=== PATIENT | male | born 1950 | race African-American/Black ===

== ENCOUNTER 2021-05-12 10:02 | Emergency (ER) | payer OTHER ==
[2021-05-12 10:09] VITALS: BP 147/91; PULSE 72; TEMP 98.2; BMI 26.2
== END 2021-05-12 10:54 | disposition home or self-care (01) ==
LOC: FER 10:02
DX: S60.459A Superficial foreign body of unspecified finger, initial encounter (principal); W45.8XXA Other foreign body or object entering through skin, initial encounter; Y93.E5 Activity, floor mopping and cleaning; Y92.219 Unspecified school as the place of occurrence of the external cause
CPT/HCPCS: 99281-25

== ENCOUNTER 2022-03-04 03:33 | Inpatient (IN) | payer MEDICARE ==
[2022-03-04] MEDS ORDERED: SODIUM CHLORIDE 0.9% 500 ML INFUS.BAG IV ONE (04:19)
[2022-03-04 04:51] LABS: BASO % 0.4 % (0-2.0); EOS % 0.2 % (0-4.5); HEMATOCRIT 39.4 % (35.4-49); HEMOGLOBIN 13.4 GM/dL (11.7-16.9); LYMPH % 6.7 % (8-40); MCH 27.5 pg (25.7-33.7); MCHC 34.1 g/dl (32.0-35.9); MEAN CELL VOLUME 80.8 fl (80-96); MEAN PLT VOLUME 8.1 fl (7.5-11.1); MONO % 14.9 % (3.8-10.2); NEUT % 77.8 % (42.8-82.8); PLATELET COUNT 216 10^3/uL (134-434); RBC 4.88 M/mm3 (4.00-5.60); RDW 15.7 % (11.9-15.9); WHITE BLOOD COUNT 7.3 K/mm3 (4.0-10.0)
[2022-03-04 04:56] LABS: INR 1.23 (0.83-1.09); PROTHROMBIN TIME (PATIENT) 14.2 SEC (9.7-13.0)
[2022-03-04 04:59] LABS: ACTIVATED PTT 37.9 SECONDS (25.2-36.5)
[2022-03-04 05:36] LABS: CHLORIDE 90 mmol/L (98-107); SODIUM 128 mmol/L (136-145)
[2022-03-04 05:38] LABS: ANION GAP 9 MMOL/L (8-16); BLOOD UREA NITROGEN 17.1 mg/dL (7-18); CALCIUM 8.6 mg/dL (8.5-10.1); CO2 29 mmol/L (21-32); GLUCOSE,RANDOM 118 mg/dL (74-106)
[2022-03-04 05:39] LABS: ALBUMIN 2.4 g/dl (3.4-5.0)
[2022-03-04 05:41] LABS: SGPT/ALT 116 U/L (13-61)
[2022-03-04 05:42] LABS: CREATININE 1.4 mg/dL (0.55-1.3); SGOT/AST 268 U/L (15-37)
[2022-03-04 05:43] LABS: BILIRUBIN,TOTAL 0.8 mg/dL (0.2-1); TOT PROT 6.5 g/dl (6.4-8.2)
[2022-03-04 05:44] LABS: ALK PHOS 72 U/L (45-117)
[2022-03-04] MEDS ORDERED: CEFTRIAXONE 1 GM in DEXTROSE 5%-WATER - 100 ML IVPB ONE (05:52)
[2022-03-04] MEDS ORDERED: AZITHROMYCIN IVPB 500 MG in DEXTROSE 5%-WATER - 250 ML IVPB ONE (05:52)
[2022-03-04] MEDS ORDERED: ASPIRIN 81 MG CHEWABLE TABLETS PO ONE (06:08)
[2022-03-04] MEDS ORDERED: ASPIRIN 81 MG CHEWABLE TABLETS ONE (06:49)
[2022-03-04] MEDS ORDERED: AZITHROMYCIN IVPB 500 MG/250 ML BAG IVPB ONE (06:50)
[2022-03-04] MEDS ORDERED: CEFTRIAXONE 1 GM/50 ML BAG ONE (06:50)
[2022-03-04] MEDS ORDERED: ACETAMINOPHEN 1000 MG/100 ML BAG IVPB ONE (07:00)
[2022-03-04 07:45] LABS: EPI CELLS 14 /uL (0-25.1); HYALINE CASTS 1 /uL (0-3.1); URINE APPEARANCE CLEAR; URINE BACTERIA 3 /uL (0-1359); URINE BILIRUBIN NEGATIVE (NEGATIVE); URINE COLOR YELLOW; URINE GLUCOSE (UA) NEGATIVE (NEGATIVE); URINE KETONE NEGATIVE (NEGATIVE); URINE LEUK ESTERASE NEGATIVE (NEGATIVE); URINE NITRITE NEGATIVE (NEGATIVE); URINE PROTEIN 2+ (NEGATIVE); URINE WBC 52 /uL (0-25.8)
[2022-03-04] MEDS ORDERED: ACETAMINOPHEN INJECTION 100 ML IVPB ONE (08:11)
[2022-03-04 09:21] LABS: CALCIUM 8.3 mg/dL (8.5-10.1)
[2022-03-04 09:22] LABS: BLOOD UREA NITROGEN 17.7 mg/dL (7-18)
[2022-03-04 09:25] LABS: CREATININE 1.3 mg/dL (0.55-1.3)
[2022-03-04] MEDS ORDERED: ACETAMINOPHEN 325 MG TABLET (FP) PO PRN (09:29)
[2022-03-04 10:07] LABS: URINE RBC 24 /uL (0-23.9)
[2022-03-04] MEDS ORDERED: amLODIPine BESYLATE 10 MG TABLET (FP) ONE (10:45)
[2022-03-04] MEDS: DEXTROSE 5%-0.45% SALINE 1,000 ML IV SCH (10:58)
[2022-03-04] MEDS: HEPARIN NA (PORCINE) 5,000 UNITS/ML 1ML VIAL SQ SCH ×2 (10:59→23:14)
[2022-03-04] MEDS: amLODIPine BESYLATE 10 MG TABLET (FP) PO SCH (10:59)
[2022-03-04] MEDS ORDERED: LOSARTAN POTASSIUM 50 MG TABLET ONE (12:41)
[2022-03-04] MEDS: LOSARTAN POTASSIUM 50 MG TABLET PO SCH (12:51)
[2022-03-04] MEDS ORDERED: ATORVASTATIN CA 20 MG TABLET (FP) ONE (23:06)
[2022-03-04] MEDS ORDERED: HEPARIN NA (PORCINE) 5,000 UNITS/ML 1ML VIAL ONE (23:07)
[2022-03-04] MEDS: ATORVASTATIN CA 20 MG TABLET (FP) PO SCH (23:14)
[2022-03-05] MEDS: DOXAZOSIN MESYLATE 4 MG TABLET PO SCH ×2 (00:19→22:16)
[2022-03-05 06:43] LABS: BASO % 0.3 % (0-2.0); EOS % 1.2 % (0-4.5); HEMATOCRIT 36.9 % (35.4-49); HEMOGLOBIN 12.5 GM/dL (11.7-16.9); LYMPH % 10.4 % (8-40); MCH 27.8 pg (25.7-33.7); MCHC 33.9 g/dl (32.0-35.9); MEAN PLT VOLUME 8.3 fl (7.5-11.1); MONO % 16.5 % (3.8-10.2); NEUT % 71.6 % (42.8-82.8); PLATELET COUNT 261 10^3/uL (134-434); RDW 15.8 % (11.9-15.9); WHITE BLOOD COUNT 6.8 K/mm3 (4.0-10.0)
[2022-03-05 07:00] LABS: CALCIUM 8.5 mg/dL (8.5-10.1)
[2022-03-05 07:01] LABS: ALBUMIN 2.3 g/dl (3.4-5.0); BLOOD UREA NITROGEN 17.2 mg/dL (7-18)
[2022-03-05 07:04] LABS: CREATININE 1.1 mg/dL (0.55-1.3)
[2022-03-05 07:06] LABS: BILIRUBIN,TOTAL 0.6 mg/dL (0.2-1)
[2022-03-05] MEDS ORDERED: POTASSIUM CHLORIDE ORAL LIQUID 20 MEQ/15 ML PO ONE (09:00)
[2022-03-05] MEDS ORDERED: POTASSIUM CHLORIDE ORAL LIQUID 20 MEQ/15 ML ONE (09:07)
[2022-03-05] MEDS ORDERED: amLODIPine BESYLATE 10 MG TABLET (FP) ONE (09:10)
[2022-03-05] MEDS ORDERED: LOSARTAN POTASSIUM 50 MG TABLET ONE (09:10)
[2022-03-05] MEDS ORDERED: CEFTRIAXONE 2 GM/100 ML BAG IVPB ONE (09:11)
[2022-03-05] MEDS ORDERED: AZITHROMYCIN IVPB 500 MG/250 ML BAG IVPB ONE (09:11)
[2022-03-05] MEDS ORDERED: HEPARIN NA (PORCINE) 5,000 UNITS/ML 1ML VIAL ONE ×2 (09:11→21:37)
[2022-03-05] MEDS ORDERED: ASPIRIN 81 MG CHEWABLE TABLETS ONE (09:11)
[2022-03-05] MEDS: HEPARIN NA (PORCINE) 5,000 UNITS/ML 1ML VIAL SQ SCH ×2 (09:30→22:16)
[2022-03-05] MEDS: AZITHROMYCIN IVPB 500 MG/250 ML BAG IVPB SCH (09:30)
[2022-03-05] MEDS: ASPIRIN 81 MG CHEWABLE TABLETS PO SCH (09:30)
[2022-03-05] MEDS: DEXTROSE 5%-0.45% SALINE 1,000 ML IV SCH (09:30)
[2022-03-05] MEDS: CEFTRIAXONE 2 GM in DEXTROSE 5%-WATER 100 ML IVPB SCH (09:30)
[2022-03-05] MEDS: LOSARTAN POTASSIUM 50 MG TABLET PO SCH (09:30)
[2022-03-05] MEDS: amLODIPine BESYLATE 10 MG TABLET (FP) PO SCH (09:30)
[2022-03-05] MEDS ORDERED: ATORVASTATIN CA 20 MG TABLET (FP) ONE (21:37)
[2022-03-05] MEDS: ATORVASTATIN CA 20 MG TABLET (FP) PO SCH (22:16)
[2022-03-06 07:59] LABS: BASO % 0.6 % (0-2.0); EOS % 3.5 % (0-4.5); HEMATOCRIT 38.6 % (35.4-49); HEMOGLOBIN 13.1 GM/dL (11.7-16.9); MCHC 33.9 g/dl (32.0-35.9); MEAN CELL VOLUME 82.7 fl (80-96); MEAN PLT VOLUME 8.9 fl (7.5-11.1); MONO % 14.5 % (3.8-10.2); NEUT % 67.4 % (42.8-82.8); PLATELET COUNT 297 10^3/uL (134-434); RBC 4.66 M/mm3 (4.00-5.60); RDW 16.3 % (11.9-15.9); WHITE BLOOD COUNT 5.7 K/mm3 (4.0-10.0)
[2022-03-06 08:14] LABS: CHLORIDE 100 mmol/L (98-107); SODIUM 136 mmol/L (136-145)
[2022-03-06 08:19] LABS: ALBUMIN 2.4 g/dl (3.4-5.0); ANION GAP 7 MMOL/L (8-16); BLOOD UREA NITROGEN 16.2 mg/dL (7-18); CO2 30 mmol/L (21-32); GLUCOSE,RANDOM 123 mg/dL (74-106)
[2022-03-06 08:22] LABS: CREATININE 0.9 mg/dL (0.55-1.3); SGOT/AST 128 U/L (15-37); SGPT/ALT 121 U/L (13-61)
[2022-03-06 08:23] LABS: BILIRUBIN,TOTAL 0.4 mg/dL (0.2-1)
[2022-03-06 08:24] LABS: TOT PROT 6.3 g/dl (6.4-8.2)
[2022-03-06 08:25] LABS: ALK PHOS 83 U/L (45-117)
[2022-03-06] MEDS ORDERED: amLODIPine BESYLATE 10 MG TABLET (FP) ONE ×3 (08:26→22:03)
[2022-03-06] MEDS ORDERED: LOSARTAN POTASSIUM 50 MG TABLET ONE ×2 (08:26→08:46)
[2022-03-06] MEDS ORDERED: AZITHROMYCIN IVPB 500 MG/250 ML BAG IVPB ONE (08:27)
[2022-03-06] MEDS ORDERED: ASPIRIN 81 MG CHEWABLE TABLETS ONE ×2 (08:27→08:47)
[2022-03-06] MEDS ORDERED: HEPARIN NA (PORCINE) 5,000 UNITS/ML 1ML VIAL ONE ×2 (08:27→22:03)
[2022-03-06] MEDS ORDERED: CEFTRIAXONE 2 GM/100 ML BAG IVPB ONE (08:27)
[2022-03-06] MEDS: HEPARIN NA (PORCINE) 5,000 UNITS/ML 1ML VIAL SQ SCH ×2 (10:41→22:07)
[2022-03-06] MEDS: ASPIRIN 81 MG CHEWABLE TABLETS PO SCH (10:41)
[2022-03-06] MEDS: CEFTRIAXONE 2 GM in DEXTROSE 5%-WATER 100 ML IVPB SCH (10:41)
[2022-03-06] MEDS: LOSARTAN POTASSIUM 50 MG TABLET PO SCH (10:41)
[2022-03-06] MEDS: amLODIPine BESYLATE 10 MG TABLET (FP) PO SCH (10:41)
[2022-03-06] MEDS: AZITHROMYCIN IVPB 500 MG/250 ML BAG IVPB SCH (10:41)
[2022-03-06] MEDS ORDERED: ATORVASTATIN CA 20 MG TABLET (FP) ONE (22:03)
[2022-03-06] MEDS: ATORVASTATIN CA 20 MG TABLET (FP) PO SCH (22:07)
[2022-03-06] MEDS: DOXAZOSIN MESYLATE 4 MG TABLET PO SCH (22:21)
[2022-03-07] MEDS ORDERED: amLODIPine BESYLATE 5 MG TABLET (FP) ONE (10:05)
[2022-03-07] MEDS ORDERED: LOSARTAN POTASSIUM 50 MG TABLET ONE (10:05)
[2022-03-07] MEDS ORDERED: CEFTRIAXONE 2 GM/100 ML BAG IVPB ONE (10:06)
[2022-03-07] MEDS ORDERED: HEPARIN NA (PORCINE) 5,000 UNITS/ML 1ML VIAL ONE (10:06)
[2022-03-07] MEDS ORDERED: ASPIRIN 81 MG CHEWABLE TABLETS ONE (10:06)
[2022-03-07] MEDS ORDERED: AZITHROMYCIN IVPB 500 MG/250 ML BAG IVPB ONE (10:07)
[2022-03-07] MEDS: HEPARIN NA (PORCINE) 5,000 UNITS/ML 1ML VIAL SQ SCH ×2 (10:39→22:33)
[2022-03-07] MEDS: ASPIRIN 81 MG CHEWABLE TABLETS PO SCH (10:40)
[2022-03-07] MEDS: CEFTRIAXONE 2 GM in DEXTROSE 5%-WATER 100 ML IVPB SCH (10:40)
[2022-03-07] MEDS: amLODIPine BESYLATE 10 MG TABLET (FP) PO SCH (10:40)
[2022-03-07] MEDS: LOSARTAN POTASSIUM 50 MG TABLET PO SCH (10:40)
[2022-03-07] MEDS: AZITHROMYCIN IVPB 500 MG/250 ML BAG IVPB SCH (11:30)
[2022-03-07] MEDS: ATORVASTATIN CA 20 MG TABLET (FP) PO SCH (22:33)
[2022-03-07] MEDS: DOXAZOSIN MESYLATE 4 MG TABLET PO SCH (22:33)
[2022-03-07 23:03] VITALS: BMI 26.4
[2022-03-08] MEDS ORDERED: DEXTROSE 5%-WATER 100 ML IVPB ONE (10:09)
[2022-03-08] MEDS: ASPIRIN 81 MG CHEWABLE TABLETS PO SCH (10:11)
[2022-03-08] MEDS: HEPARIN NA (PORCINE) 5,000 UNITS/ML 1ML VIAL SQ SCH ×2 (10:11→21:01)
[2022-03-08] MEDS: amLODIPine BESYLATE 10 MG TABLET (FP) PO SCH (10:11)
[2022-03-08] MEDS: AZITHROMYCIN IVPB 500 MG/250 ML BAG IVPB SCH (10:11)
[2022-03-08] MEDS: CEFTRIAXONE 2 GM in DEXTROSE 5%-WATER 100 ML IVPB SCH (10:11)
[2022-03-08] MEDS: LOSARTAN POTASSIUM 50 MG TABLET PO SCH (10:11)
[2022-03-08] MEDS: ATORVASTATIN CA 20 MG TABLET (FP) PO SCH (21:01)
[2022-03-08] MEDS: DOXAZOSIN MESYLATE 4 MG TABLET PO SCH (21:01)
[2022-03-09] MEDS: guaiFENesin 200 MG/10 ML 10 ML UNIT-DOSE CUPS PO PRN ×3 (02:43→18:42)
[2022-03-09] MEDS ORDERED: DEXTROSE 5%-WATER 100 ML IVPB ONE (09:42)
[2022-03-09] MEDS: LOSARTAN POTASSIUM 50 MG TABLET PO SCH (09:54)
[2022-03-09] MEDS: CEFTRIAXONE 2 GM in DEXTROSE 5%-WATER 100 ML IVPB SCH (09:54)
[2022-03-09] MEDS: AZITHROMYCIN IVPB 500 MG/250 ML BAG IVPB SCH (09:55)
[2022-03-09] MEDS: ASPIRIN 81 MG CHEWABLE TABLETS PO SCH (09:55)
[2022-03-09] MEDS: HEPARIN NA (PORCINE) 5,000 UNITS/ML 1ML VIAL SQ SCH ×2 (09:55→21:54)
[2022-03-09] MEDS: amLODIPine BESYLATE 10 MG TABLET (FP) PO SCH (09:55)
[2022-03-09 12:55] LABS: HEMATOCRIT 37.5 % (35.4-49); HEMOGLOBIN 12.6 GM/dL (11.7-16.9); MCH 27.6 pg (25.7-33.7); MCHC 33.5 g/dl (32.0-35.9); MEAN CELL VOLUME 82.4 fl (80-96); MEAN PLT VOLUME 7.2 fl (7.5-11.1); PLATELET COUNT 554 10^3/uL (134-434); RBC 4.55 M/mm3 (4.00-5.60); RDW 16.6 % (11.9-15.9); WHITE BLOOD COUNT 6.1 K/mm3 (4.0-10.0)
[2022-03-09 13:21] LABS: ANISOCYTOSIS 0; HELMET CELLS 0; HOWELL-JOLLY BODIES 0; MACROCYTOSIS 0; OVALOCYTE 0; ROULEAU 0; SICKELED CELLS 0; TARGET CELLS 0; TEAR DROP CELLS 0; TOXIC GRANULATION 0
[2022-03-09 13:24] LABS: CALCIUM 9.4 mg/dL (8.5-10.1)
[2022-03-09 13:25] LABS: ALBUMIN 2.7 g/dl (3.4-5.0); BLOOD UREA NITROGEN 12.6 mg/dL (7-18)
[2022-03-09 13:28] LABS: CREATININE 0.9 mg/dL (0.55-1.3)
[2022-03-09 13:30] LABS: BILIRUBIN,TOTAL 0.4 mg/dL (0.2-1); TOT PROT 6.6 g/dl (6.4-8.2)
[2022-03-09] MEDS: DOXAZOSIN MESYLATE 4 MG TABLET PO SCH (21:54)
[2022-03-09] MEDS: ATORVASTATIN CA 20 MG TABLET (FP) PO SCH (21:54)
[2022-03-10] MEDS ORDERED: DEXTROSE 5%-WATER 100 ML IVPB ONE ×2 (08:55→09:09)
[2022-03-10] MEDS: CEFTRIAXONE 2 GM in DEXTROSE 5%-WATER 100 ML IVPB SCH (09:17)
[2022-03-10] MEDS: amLODIPine BESYLATE 10 MG TABLET (FP) PO SCH (09:17)
[2022-03-10] MEDS: LOSARTAN POTASSIUM 50 MG TABLET PO SCH (09:18)
[2022-03-10] MEDS: ASPIRIN 81 MG CHEWABLE TABLETS PO SCH (09:18)
[2022-03-10] MEDS: HEPARIN NA (PORCINE) 5,000 UNITS/ML 1ML VIAL SQ SCH (09:18)
[2022-03-10] MEDS: AZITHROMYCIN IVPB 500 MG/250 ML BAG IVPB SCH (09:23)
[2022-03-10 14:55] VITALS: BP 154/92; PULSE 90; TEMP 98
== END 2022-03-10 17:00 | disposition home or self-care (01) | DRG 193 ==
LOC: JER 03:33 → JERBED 05:56 → J4S 03-07 20:47
PROVIDERS: ADMIT Internal Medicine; ATTEND Internal Medicine
DX: J15.4 Pneumonia due to other streptococci (principal); G92.8 Other toxic encephalopathy; I24.8 Other forms of acute ischemic heart disease; E87.1 Hypo-osmolality and hyponatremia; I10 Essential (primary) hypertension; E78.5 Hyperlipidemia, unspecified; R74.01 Elevation of levels of liver transaminase levels; R41.82 Altered mental status, unspecified
CPT/HCPCS: 0241U-QW; 36415; 70450-TC; 71045-TC-FY; 80048; 80053; 81003; 82728; 82962; 84443; 84484; 85025; 85610; 85730; 86140; 86850; 86900; 86901; 87040; 87086; 87899; 93005; 93010; 93306-TC; 97116-GP; 97161-GP; 99285-25; C9803-CS; J1644; U0003; U0005

== ENCOUNTER 2022-06-19 22:22 | Emergency (ER) | payer MEDICARE, OTHER ==
[2022-06-19 22:36] VITALS: BP 155/91; PULSE 79; RESP 17; TEMP 99.3; BMI 28.2
[2022-06-19] MEDS ORDERED: PANTOPRAZOLE 40 MG TABLET PO ONE ×2 (22:52→22:56)
== END 2022-06-19 22:59 | disposition home or self-care (01) ==
LOC: FER 22:22
DX: R06.6 Hiccough (principal)
CPT/HCPCS: 99283-25

== ENCOUNTER 2025-01-24 17:42 | Emergency (ER) | payer MEDICARE ==
[2025-01-24 17:50] VITALS: TEMP 98.1; BMI 29.7
[2025-01-24] MEDS ORDERED: ACETAMINOPHEN INJECTION 100 ML ONE (19:21)
[2025-01-24] MEDS ORDERED: METOCLOPRAMIDE HCL INJECTION 10 MG/2 ML VIAL ONE (19:21)
[2025-01-24] MEDS: METOCLOPRAMIDE HCL INJECTION 10 MG/2 ML VIAL IVPUSH ONE (19:48)
[2025-01-24] MEDS: ACETAMINOPHEN 1000 MG/100 ML BAG IVPB ONE (19:48)
[2025-01-24] MEDS: SODIUM CHLORIDE 0.9% 500 ML INFUS.BAG IV ONE (19:48)
[2025-01-24 19:53] LABS: ABSOLUTE IMMATURE GRANULOCYTES 0.02 x10^3/uL (0.0-0.031); BASOPHILS # 0.02 x10^3/uL (0.01-0.08); EOSINOPHIL % 3.1 % (0.8-7.0); EOSINOPHILS # 0.15 x10^3/uL (0.04-0.54); HEMATOCRIT 40.7 % (40.1-51.0); MCHC 31.9 g/dl (32.3-36.5); MEAN PLT VOLUME 9.2 fl (9.4-12.4); MONOCYTE # 0.66 x10^3/uL (0.30-0.82); MONOCYTE % 13.8 % (5.3-12.2); PLATELET COUNT 238 x10^3/uL (163-337); RDW 15.4 % (12.2-16.6)
[2025-01-24 20:33] LABS: CHLORIDE 103 mmol/L (98-107); POTASSIUM 4.3 mmol/L (3.5-5.1); SODIUM 139 mmol/L (136-145)
[2025-01-24 20:35] LABS: ALBUMIN 3.6 g/dl (3.4-5.0); ANION GAP 4 mmol/L (4-13); BLOOD UREA NITROGEN 19.8 mg/dL (7-18); CALCIUM 10.2 mg/dL (8.5-10.1); CO2 31 mmol/L (21-32); GLUCOSE,RANDOM 96 mg/dL (74-106)
[2025-01-24 20:38] LABS: CREATININE 1.2 mg/dL (0.55-1.3); SGOT/AST 22 U/L (15-37); SGPT/ALT 28 U/L (13-61)
[2025-01-24 20:40] LABS: BILIRUBIN,TOTAL 0.4 mg/dL (0.2-1)
[2025-01-24 20:41] LABS: ALK PHOS 81 U/L (45-117)
[2025-01-24 21:57] LABS: ERYTHROCYTE SEDIMENTATION RATE 7 mm/hr (0-20)
[2025-01-24 22:06] VITALS: BP 135/87; PULSE 64; RESP 16
== END 2025-01-24 22:07 | disposition home or self-care (01) ==
LOC: JER 17:42
PROC: 3E033NZ Introduction of Analgesics, Hypnotics, Sedatives into Peripheral Vein, Percutaneous Approach (ICD-10-PCS; principal; 2025-01-24)
PROC: 3E033GC Introduction of Other Therapeutic Substance into Peripheral Vein, Percutaneous Approach (ICD-10-PCS; 2025-01-24)
DX: R51.9 Headache, unspecified (principal)
CPT/HCPCS: 36415; 70450-TC; 80053; 85025; 85651; 86140; 96374; 96375; 99285-25; J0131